=== PATIENT | male | born 2000 | race Caucasian/White ===

== ENCOUNTER 2019-05-23 10:39 | Emergency (ER) | payer SELFPAY ==
[2019-05-23 11:02] VITALS: BP 128/74
[2019-05-23 11:02] LABS: BASOPHILS % 0.6 % (0.0-1.5)
[2019-05-23 11:15] LABS: eGFR (Non-African) > 60
--- NOTE | 2019-05-23 11:44 | Diagnostic Imaging Report ---
PATIENT MR#: [id number] PATIENT PATIENT NAME: SALONI GUTIERREZ DATE OF : 2000 REFERRING PHYSICIAN: Thom Young EXAM DATE: 05/23/2019 ACCESSION NUMBER: [id number] EXAM DESCRIPTION: CT NECK SOFT TISSUE W/ Exam: CT of the neck with contrast. History: Neck swelling. Axial images through the neck are submitted after IV infusion of 90 cc Omnipaque 350 is submitted mono ng with sagittal and coronal reformatted images. In the sagittal images there is straightening of the normal lordotic curvature. The epiglottis appears to be normal in configuration. The prevertebral soft tissues are normal. No phar yngeal ballooning is identified. No subglottic stenosis is identified. The thyroid gland appears to be normal in size and configuration. Tonsillar enlargement is noted sher aterally especially on the right creating some mild extrinsic pressure on the pharynx. Cervical adenopathy in the [place] c arotid and posterior carotid spaces are noted. The opacified vascular structures are normal caliber. No other areas of abnormal enhancement are identified. No other bony abnormalities are identified. Impression: The epiglottis appears to be normal in configuration. No subglottic stenosis or pharyngeal ballooning is identified. The thyroid gland appears normal in configuration. Tonsillar enlargement bilaterally is noted especially on the right creating some extrinsic pressure o n the pharynx. Cervical adenopathy in the [place] carotid and posterior carotid spaces. Read by: Dr. Geoffrey Sutherland Transcribed by: Transcribed Date: Electronically signed by: Dr. Geoffrey Sutherland Date signed: 05/23/2019 11:43:48 AM
--- NOTE | 2019-05-23 11:59 | ED Physician Documentation ---
General Adult - HISTORIAN Historian: patient - HPI Stated Complaint: Dental pain/facial swelling Chief Complaint: General Adult Onset: days ago Timing: still present Severity: moderate Further Comments: yes (Pt is a 19 yo male with dental pain and swelling of the R side of his neck. Pt has some trouble swallowing. No fever.) - ROS CONST: no problems EYES/ENT: other (dental pain; swelling of R side of neck.) CVS/RESP: none GI/: none MS/SKIN/LYMPH: other (swelling R side of neck) - PAST HX Past History: none Allergies/Adverse Reactions: Allergies Allergy/AdvReac Type Severity Reaction Status Date / Time Sulfa (Sulfonamide Allergy Rash Verified 05/23/19 10:48 Antibiotics) Home Medications: Ambulatory Orders Medication Instructions Recorded NK 05/23/19 - SOCIAL HX Smoking History: cigarettes - FAMILY HX Family History: No - VITAL SIGNS Vital Signs: Vital Signs Temp Pulse Resp BP Pulse Ox 98.3 F 82 18 128/74 98 05/23/19 10:40 05/23/19 10:40 05/23/19 10:40 05/23/19 10:40 05/23/19 10:40 - REVIEWED ASSESSMENTS Nursing Assessment Reviewed: Yes Vitals Reviewed: Yes Progress - Progress Progress: Exam: CT of the neck with contrast. History: Neck swelling. Axial images through the neck are submitted after IV infusion of 90 cc Omnipaque 350 is submitted along with sagittal and coronal reformatted images. In the sagittal images there is straightening of the normal lordotic curvature. The epiglottis appears to be normal in configuration. The prevertebral soft tissues are normal. No pharyngeal ballooning is identified. No subglottic stenosis is identified. The thyroid gland appears to be normal in size and configuration. Tonsillar enlargement is noted bilaterally especially on the right creating some mild extrinsic pressure on the pharynx. Cervical adenopathy in the [place] carotid and posterior carotid spaces are noted. The opacified vascular structures are normal caliber. No other areas of abnormal enhancement are identified. No other bony abnormalities are identified. Impression: The epiglottis appears to be normal in configuration. No subglottic stenosis or pharyngeal ballooning is identified. The thyroid gland appears normal in configuration. Tonsillar enlargement bilaterally is noted especially on the right creating some extrinsic pressure on the pharynx. Cervical adenopathy in the [place] carotid and posterior carotid spaces. Rx Augmentin (875/125) 1 po q 12 h x 10 days. Rx Maramec (5/325). 1-2 po q 6 h prn #15 ED Results Lab/Radiology - Lab Results Lab Results: Lab Results 05/23/19 05/23/19 11:00 11:00 WBC 11.00 K/ul K/ul (4.00-12.00) RBC 4.80 M/ul M/ul (3.90-5.20) Hgb 14.8 g/dL g/dL (12.0-18.0) Hct 44.6 % % (37.0-53.0) MCV 93.0 fl fl (80.0-100.0) MCH 30.8 pg pg (28.0-34.0) MCHC 33.2 g/dL g/dL (30.0-36.0) RDW 10.5 % L % (11.3-14.3) Plt Count 237 K/mm3 K/mm3 (130-400) Neut % (Auto) 63.6 % % (39.0-79.0) Lymph % (Auto) 23.0 % % (16.0-50.0) [place] % (Auto) 10.5 % % (0.0-11.0) Eos % (Auto) 2.3 % % (0.0-6.8) Baso % (Auto) 0.6 % % (0.0-1.5) Neut # (Auto) 7.0 # k/uL # k/uL (1.4-7.7) Lymph # (Auto) 2.5 # k/uL # k/uL (0.6-4.0) [place] # (Auto) 1.2 # k/uL H # k/uL (0.0-0.9) Eos # (Auto) 0.3 # k/uL # k/uL (0.0-0.6) Baso # (Auto) 0.1 # k/uL # k/uL (0.0-0.5) Sodium 141 mmol/L mmol/L (137-145) Potassium 4.1 mmol/L mmol/L (3.5-5.1) Chloride 103 mmol/L mmol/L (98-107) Carbon Dioxide 28 mmol/L mmol/L (22-30) Anion Gap 14.1 BUN 11 mg/dL mg/dL (9-20) Creatinine 0.79 mg/dL mg/dL (0.66-1.25) Estimated Creat Clear 181 Est GFR ( Amer) > 60 (60 - ) Est GFR (Non-Af Amer) > 60 (60 - ) Glucose 93 mg/dL mg/dL (74-106) Calcium 10.0 mg/dL mg/dL (8.4-10.2) Total Bilirubin 0.7 mg/dL mg/dL (0.2-1.3) AST 48 U/L H U/L (15-46) ALT 28 U/L U/L (0-50) Alkaline Phosphatase 72 U/L U/L (38-126) Total Protein 8.4 g/dL H g/dL (6.3-8.2) Albumin 5.0 g/dL g/dL (3.5-5.0) - Orders Orders: ED Orders Category Date Time Status Place IV Lock 1T Care 05/23/19 10:[address] NECK SOFT TISSUE W/ CON Stat Exams 05/23/19 Completed CBC/PLATELET/DIFF Routine Lab 05/23/19 11:00 Completed CMP [CMP] Routine Lab 05/23/19 11:00 Completed General Adult Physical Exam - PHYSICAL EXAM GENERAL APPEARANCE: mild distress EENT: other (dental caries, swelling) NECK: other (swelling R side of neck) RESPIRATORY: no resp distress, chest non-tender, breath sounds normal CVS: reg rate & rhythm, heart sounds normal BACK: normal inspection SKIN: warm/dry, normal color EXTREMITIES: non-tender, normal range of motion, no evidence of injury NEURO: oriented X3, motor nml, sensation nml Discharge Clincal Impression: dental pain, lymphadenopathy Referrals: Primary Doctor,No [Primary Care Provider] - Condition: Stable Disposition: 01 HOME, SELF-CARE Decision to Admit: NO Decision Time: 11:59
== END 2019-05-23 12:05 | disposition home or self-care (01) ==
LOC: ED 10:39
DX: K08.89 Other specified disorders of teeth and supporting structures (principal); R59.1 Generalized enlarged lymph nodes; F17.210 Nicotine dependence, cigarettes, uncomplicated
CPT/HCPCS: 70491; 80053; 85025; 99282; 99283; Q9967; S1016